=== PATIENT | male | born 1955 | race Caucasian/White ===

== ENCOUNTER 2023-06-03 09:51 | Inpatient (IN) ==
[2023-06-03] MEDS ORDERED: Naloxone Nasal Spray 4 MG/0.1 ML NASAL.SPR INTRANASAL ONE (10:07)
[2023-06-03] MEDS: Dexamethasone IV 4 MG/ML VIAL 1 ml VIAL IV SLOW PU ONE (10:10)
[2023-06-03] MEDS ORDERED: Rocuronium 50 mg VIAL 10 mg/ml 5 ml VIAL (50 mg) ONE (10:15)
[2023-06-03] MEDS ORDERED: Succinylcholine 200 mg VIAL 20 mg/ml 10 ml VIAL (200 mg) ONE (10:15)
[2023-06-03] MEDS ORDERED: Etomidate 40 mg/20 ml (2 MG/ML) 20 ml VIAL (40 mg) ONE (10:32)
[2023-06-03] MEDS ORDERED: Propofol 10 mg/ml 100 ML BTL 1,000 MG/100 ML BTL ONE (10:33)
[2023-06-03] MEDS ORDERED: Norepinephrine 4 MG/250mL D5W 4,000 MCG/250 ML BAG IV ONE (10:37)
[2023-06-03] MEDS ORDERED: fentaNYL 100 mcg/2 ml 50 MCG/ML VIAL ONE (10:39)
[2023-06-03] MEDS: Albuterol/Ipratropium NEB.SOL (2.5/0.5 MG) 3 ML NEB.SOLN INH ONE ×2 (10:45→11:00)
[2023-06-03] MEDS: fentaNYL 100 mcg/2 ml 50 MCG/ML VIAL IV SLOW PU ONE ×3 (10:51→13:48)
[2023-06-03 11:01] LABS: Activated Partial Thrombo Time 33.9 seconds (26.0-38.0); INR 1.04 (0.83-1.13)
[2023-06-03] MEDS: Ondansetron 4 mg VIAL 2 MG/ML 2 ml VIAL IV ONE (11:10)
[2023-06-03 11:11] LABS: High Sens Troponin Baseline 13 pg/mL (<20)
[2023-06-03 11:38] LABS: Urine Appearance Clear; Urine Bilirubin Negative (Negative); Urine Blood Trace (Negative); Urine Color Yellow; Urine Glucose Negative (Negative); Urine Ketones Negative (Negative); Urine Nitrite Negative (Negative); Urine Protein 2+ (>=100 mg/dL) (Negative); Urine Specific Gravity 1.018 (1.002-1.030); Urine Urobilinogen Negative (Negative); Urine pH 5.5 (5.0-8.0)
[2023-06-03 11:40] LABS: ALT 5 U/L (7-52); AST 8 U/L (13-39); Albumin 3.6 g/dL (3.2-5.2); Albumin/Globulin Ratio 1.5 (1-3); Alkaline Phosphatase 117 U/L (35-149); Blood Urea Nitrogen 60 mg/dL (6-24); C Reactive Protein 18.51 mg/L (<8.01); CO2 Carbon Dioxide > 45 mmol/L (22-32); Calcium 8.4 mg/dL (8.6-10.3); Chloride 94 mmol/L (101-111); Creatinine, Serum 2.62 mg/dL (0.67-1.17); Globulin 2.4 g/dL (2-4); Glucose 150 mg/dL (70-100); Potassium 6.9 mmol/L (3.5-5.0); Sodium 141 mmol/L (135-145); Total Bilirubin 0.4 mg/dL (0.2-1.0); eGFR CKD-EPI 25.5 (>60)
[2023-06-03 11:46] LABS: ABS Lymphocytes 0.8 10^3/uL (1.0-4.8); ABS Monocytes 0.5 10^3/uL (0.0-1.1); ABS Neutrophils 10.8 10^3/uL (1.5-7.6); ABS Nucleated RBC 0.05 10^3/ul; Eosinophil % 0.1 %; Hematocrit 35.8 % (38-53); Hemoglobin 11.4 g/dL (13.2-16.3); Lymphocyte % 6.8 %; Mean Corpuscular Hemoglobin 30.4 pg (27-33); Mean Corpuscular Hgb Conc 31.8 g/dL (31-36); Mean Corpuscular Volume 95.5 fL (80-97); Mean Platelet Volume 8.8 fL (7.5-11.2); Nucleated Red Blood Cells % 0.4 %/100WBC (0.0-0.8); Platelet Count 179 10^3/uL (150-450); Red Blood Count 3.75 10^6/uL (4.06-5.63); Red Cell Distribution Width 15.9 % (12-17); White Blood Count 12.3 10^3/uL (3.6-10.2)
[2023-06-03 12:04] LABS: Urine Bacteria Absent /HPF (Absent); Urine Red Blood Cell Trace(0-2/hpf) /HPF (0-Trace); Urine Squamous Epithelial Cell Present /HPF (Absent); Urine White Blood Cell Trace(0-5/hpf) /HPF (0-Trace)
[2023-06-03] MEDS: Iodixanol (CONTRAST) 320 MG/ML 100 ML SDV IV ONE (13:10)
[2023-06-03 13:45] LABS: High Sensitivity Troponin 1 Hr 15 pg/mL (<20)
[2023-06-03] MEDS: Furosemide 40 mg/4 ml IV VIAL IV SLOW PU ONE (13:50)
[2023-06-03] MEDS ORDERED: Dextrose 50% Syringe 50 ml 25 GM/50 ML SYRINGE IV PUSH PRN (13:52)
[2023-06-03] MEDS: CALCIUM GLUCONATE 1GM/50ML NS 1 GM/50 ML BAG IV ONE (13:58)
[2023-06-03] MEDS ORDERED: Norepinephrine 4 MG/250mL NS 4,000 MCG/250 ML BAG IV SCH (14:00)
[2023-06-03] MEDS: Propofol 10 mg/ml 100 ML BTL 1,000 MG/100 ML BTL IV SCH (14:02)
[2023-06-03] MEDS: Norepinephrine 4 MG/250mL D5W 4,000 MCG/250 ML BAG IV SCH (14:03)
[2023-06-03] MEDS: Dextrose 50% Syringe 50 ml 25 GM/50 ML SYRINGE IV PUSH ONE ×2 (14:04)
[2023-06-03] MEDS: Albuterol (2.5 MG) 0.5 % CONC 0.5 ML NEB.SOLN INH ONE (14:04)
[2023-06-03 14:08] LABS: Potassium 5.2 mmol/L (3.5-5.0)
[2023-06-03] MEDS: NS 0.9% 1000 ml BAG 1,000 ML IV ONE (14:13)
[2023-06-03] MEDS: Sodium Polystyrene ORAL.SUSP 15 GM/60 ML BTL PO ONE ×2 (15:09→17:07)
[2023-06-03 15:27] LABS: Venous Bicarbonate HCO3 37.1 mmol/L (24-28)
[2023-06-03 17:26] LABS: Calcium 7.6 mg/dL (8.6-10.3); Creatinine, Serum 2.43 mg/dL (0.67-1.17); eGFR CKD-EPI 27.9 (>60)
[2023-06-03] MEDS: methylPREDNISolone SOD SUCC 40 mg/ml 1 ml VIAL IV SCH (20:32)
[2023-06-03] MEDS: cefTRIAXone 1 gm/50 mL D5W 1 GM/50 ML BAG IV SCH (20:32)
[2023-06-03] MEDS: Enoxaparin 40 MG/0.4 ML SYR SUBCUT SCH (20:32)
[2023-06-03] MEDS: Azithromycin 500 mg/250 ml NS 500 MG/250 ML BAG IVPB SCH (20:33)
[2023-06-03] MEDS: Enoxaparin 40 MG/0.4 ML SYR ONE (21:10)
[2023-06-03] MEDS: Pantoprazole VIAL 40 MG VIAL IV SCH (22:59)
[2023-06-03] MEDS: Chlorhexidine MOUTHWASH 0.12% 15 ML UDC SWISH SPIT SCH (22:59)
[2023-06-03 23:06] LABS: Calcium 8.2 mg/dL (8.6-10.3); Creatinine, Serum 2.4 mg/dL (0.67-1.17); Potassium 4.3 mmol/L (3.5-5.0); eGFR CKD-EPI 28.3 (>60)
[2023-06-04 01:52] LABS: Resp Rate 20
[2023-06-04 01:54] LABS: PCO2 Arterial 49 mmHg (35-45); PO2 Arterial 65 mmHg (80-100)
[2023-06-04] MEDS: acetaZOLAMIDE IV 500 MG in NS 0.9% 50 ML 50 ML IVPB SCH (03:04)
[2023-06-04 04:06] LABS: ABS Basophils 0.1 10^3/uL (0.0-0.1); ABS Lymphocytes 0.3 10^3/uL (1.0-4.8); ABS Monocytes 0.2 10^3/uL (0.0-1.1); ABS Neutrophils 8.6 10^3/uL (1.5-7.6); ABS Nucleated RBC 0.01 10^3/ul; Eosinophil % 0.3 %; Hematocrit 29.3 % (38-53); Hemoglobin 9.5 g/dL (13.2-16.3); Lymphocyte % 3.4 %; Mean Corpuscular Hemoglobin 30.3 pg (27-33); Mean Corpuscular Hgb Conc 32.5 g/dL (31-36); Mean Platelet Volume 9.1 fL (7.5-11.2); Nucleated Red Blood Cells % 0.1 %/100WBC (0.0-0.8); Platelet Count 125 10^3/uL (150-450); Red Blood Count 3.15 10^6/uL (4.06-5.63); Red Cell Distribution Width 15.1 % (12-17); White Blood Count 9.2 10^3/uL (3.6-10.2)
[2023-06-04 04:52] LABS: Albumin 2.7 g/dL (3.2-5.2); Albumin/Globulin Ratio 1.4 (1-3); Creatinine, Serum 2.22 mg/dL (0.67-1.17); Globulin 1.9 g/dL (2-4); Magnesium 1.9 mg/dL (1.9-2.7); Potassium 4.1 mmol/L (3.5-5.0); Total Bilirubin 0.5 mg/dL (0.2-1.0); Total Protein 4.6 g/dL (6.4-8.9); eGFR CKD-EPI 31.1 (>60)
[2023-06-04] MEDS: Albuterol/Ipratropium NEB.SOL (2.5/0.5 MG) 3 ML NEB.SOLN INH PRN (07:47)
[2023-06-04] MEDS: Aspirin EC 81 mg TAB.EC (enteric coated) PO SCH (08:49)
[2023-06-04] MEDS ORDERED: Chlorhexidine MOUTHWASH 0.12% 15 ML UDC SWISH SPIT SCH (09:00)
[2023-06-04] MEDS: Magnesium Sulfate IV 1GM/100ML 1 GM/100 ML BAG IV ONE (11:29)
[2023-06-04] MEDS: Heparin 5000 UNITS/ML 1 mL VIAL SUBCUT SCH (22:29)
[2023-06-05 04:20] LABS: ABS Basophils 0.1 10^3/uL (0.0-0.1); ABS Lymphocytes 0.4 10^3/uL (1.0-4.8); ABS Monocytes 0.2 10^3/uL (0.0-1.1); ABS Neutrophils 10.5 10^3/uL (1.5-7.6); Hematocrit 29.6 % (38-53); Hemoglobin 9.5 g/dL (13.2-16.3); Lymphocyte % 3.9 %; Mean Corpuscular Hemoglobin 30.1 pg (27-33); Mean Corpuscular Hgb Conc 32.1 g/dL (31-36); Mean Corpuscular Volume 93.7 fL (80-97); Mean Platelet Volume 9.1 fL (7.5-11.2); Platelet Count 142 10^3/uL (150-450); Red Blood Count 3.16 10^6/uL (4.06-5.63); Red Cell Distribution Width 15.7 % (12-17); White Blood Count 11.2 10^3/uL (3.6-10.2)
[2023-06-05 04:53] LABS: Calcium 8.2 mg/dL (8.6-10.3); Magnesium 2.3 mg/dL (1.9-2.7); Potassium 4.3 mmol/L (3.5-5.0); eGFR CKD-EPI 35.2 (>60)
[2023-06-05] MEDS: Nicotine PATCH 21 MG/24 HR PATCH TRANSDERM SCH (13:31)
[2023-06-06 05:48] LABS: ABS Lymphocytes 0.3 10^3/uL (1.0-4.8); ABS Monocytes 0.4 10^3/uL (0.0-1.1); ABS Nucleated RBC 0.01 10^3/ul; Hematocrit 32.6 % (38-53); Hemoglobin 10.3 g/dL (13.2-16.3); Lymphocyte % 4.4 %; Mean Corpuscular Hemoglobin 30.1 pg (27-33); Mean Corpuscular Hgb Conc 31.6 g/dL (31-36); Mean Corpuscular Volume 95.4 fL (80-97); Nucleated Red Blood Cells % 0.1 %/100WBC (0.0-0.8); Platelet Count 135 10^3/uL (150-450); Red Blood Count 3.42 10^6/uL (4.06-5.63); Red Cell Distribution Width 15.6 % (12-17); White Blood Count 7.8 10^3/uL (3.6-10.2)
[2023-06-06 06:15] LABS: Albumin 2.9 g/dL (3.2-5.2); Albumin/Globulin Ratio 1.3 (1-3); Calcium 8.2 mg/dL (8.6-10.3); Creatinine, Serum 1.61 mg/dL (0.67-1.17); Globulin 2.3 g/dL (2-4); Magnesium 2.4 mg/dL (1.9-2.7); Potassium 5.1 mmol/L (3.5-5.0); Total Bilirubin 0.3 mg/dL (0.2-1.0); Total Protein 5.2 g/dL (6.4-8.9); eGFR CKD-EPI 45.7 (>60)
[2023-06-06] MEDS ORDERED: Nicotine PATCH 21 MG/24 HR PATCH TRANSDERM SCH (08:00)
[2023-06-06] MEDS: SODIUM ZIRCONIUM CYCLOSILICATE 10 GM PACKET PO ONE (13:14)
[2023-06-06] MEDS: PTO: BUDESONIDE/GLYCOPYR/FORMOTEROL MDI (NF) INH SCH (21:26)
[2023-06-07] MEDS: Isosorbide Mononit ER 30mg TAB PO SCH (10:01)
[2023-06-08 06:47] LABS: Calcium 8.7 mg/dL (8.6-10.3); Creatinine, Serum 1.59 mg/dL (0.67-1.17); Potassium 4.3 mmol/L (3.5-5.0); eGFR CKD-EPI 46.4 (>60)
[2023-06-09 10:06] LABS: Calcium 8.9 mg/dL (8.6-10.3); Creatinine, Serum 1.54 mg/dL (0.67-1.17); Potassium 4.1 mmol/L (3.5-5.0); eGFR CKD-EPI 48.2 (>60)
[2023-06-10 21:10] LABS: Rapid COVID-19 Molecular Undetected (Undetected)
[2023-06-11 14:05] VITALS: BP 120/63
== END 2023-06-11 14:25 | DRG 70 ==
LOC: ED 09:51 → SUATTDRO 15:14 → EDHOLD 15:14 → ICU 16:10 → MEDTELE 06-06 09:32
PROVIDERS: ADMIT Surgery Surgical Critical Care; ATTEND Internal Medicine